=== PATIENT | female | born 1980 | race Caucasian/White ===

== ENCOUNTER 2024-08-12 17:14 | Emergency (ER) | payer OTHER ==
[~2024-08-12] VITALS: Ht 165.1 cm; Wt 80.0 kg
[2024-08-12] MEDS: MORPHINE SULFATE 4 MG/ML INJ (FOR IV/IM USE) IV ONE (18:24)
[2024-08-12 18:32] LABS: BASOPHILS % 0.4 % (0.0-2.0); EOSINOPHILS % 1.5 % (0.0-5.0); HEMATOCRIT. 46.5 % (36.0-48.0); HEMOGLOBIN. 15.4 g/dL (12.0-16.0); LYMPHOCYTES % 13.6 % (20.0-50.0); MEAN CORPUSCULAR HEMOGLOBIN 30.6 pg (28.0-32.0); MEAN CORPUSCULAR HGB CONC 33.2 g/dL (31.0-37.0); MEAN CORPUSCULAR VOLUME 92.2 fL (81.0-99.0); MEAN PLATELET VOLUME 8.9 fl (7.4-10.4); MONOCYTES % 6.3 % (2.0-8.0); NEUTROPHILS % 78.2 % (40.0-76.0); PLATELET 248 x1000/uL (130-400); RED BLOOD CELL COUNT 5.04 mill/uL (4.2-5.4); RED CELL DISTRIBUTION WIDTH 14.1 % (11.6-14.6); WHITE BLOOD COUNT 12.4 x1000/uL (4.5-11.0)
[2024-08-12 18:36] LABS: CHLORIDE 106 mEq/L (98-107); SODIUM 139 mEq/L (136-145)
[2024-08-12 18:38] LABS: CALCIUM 9.5 mg/dL (8.7-10.4); CARBON DIOXIDE 26 mEq/L (21-32)
[2024-08-12 18:41] VITALS: TEMP 37.22520
[2024-08-12 18:42] LABS: CREATININE 0.8 mg/dL (0.6-1.0)
[2024-08-12 18:43] LABS: GLUCOSE 127 mg/dL (70-105); HCG SCREEN NEGATIVE; UREA NITROGEN BLOOD 11 mg/dL (9-23)
[2024-08-12 20:12] VITALS: TEMP 98; O2SAT 94
[2024-08-12] MEDS: KETAMINE HCL 50 MG/ML 10ML IV ONE (20:24)
[2024-08-12] MEDS: PROPOFOL 200MG/20ML VIAL IV ONE (20:24)
[2024-08-12] MEDS: LACTATED RINGERS 1,000 ML IV SCH (20:25)
[2024-08-12 23:16] VITALS: BP 146/73; PULSE 94; RESP 17; O2SAT 97
== END 2024-08-12 23:46 | disposition short-term general hospital (02) ==
LOC: ER 17:14
DX: S82.51XA Displaced fracture of medial malleolus of right tibia, initial encounter for closed fracture (principal); E11.9 Type 2 diabetes mellitus without complications; W19.XXXA Unspecified fall, initial encounter; Y92.89 Other specified places as the place of occurrence of the external cause; Y99.8 Other external cause status; X50.1XXA Overexertion from prolonged static or awkward postures, initial encounter
CPT/HCPCS: 80048; 84703; 85025; 86850; 86900; 86901; 36415; 73600; 73610; 73620; 27762; 96374; 99152; 99291; J3490; J2704; J2270; Z7610 ×4